=== PATIENT | male | born 1975 | race Caucasian/White ===

== ENCOUNTER 2019-12-04 01:10 | Emergency (ER) | payer SELFPAY ==
[2019-12-04] MEDS ORDERED: Ketorolac 30 MG/ML SDV IM ONE (01:49)
[2019-12-04] MEDS ORDERED: Acetaminophen 325 MG Tab PO ONE (01:49)
--- NOTE | 2019-12-04 02:14 | EDM.PDOC ---
ED HPI GENERAL MEDICAL PROBLEM - General Chief Complaint: Lower Extremity Injury/Pain Stated Complaint: FALL, KNEE PAIN Time Seen by Provider: 12/04/19 01:13 Source of Information: Reports: Patient History Limitations: Reports: No Limitations - History of Present Illness INITIAL COMMENTS - FREE TEXT/NARRATIVE: 44M presents w/ L knee pain following a fall. Patient is intoxicated. Fall occured 2 days ago. Fell hitting L knee. Notes pain/swelling to L knee. Is ambulatory. Denies CHI or LOC. L knee Pain Score (Numeric/FACES): 8 - Related Data Allergies Allergy/AdvReac Type Severity Reaction Status Date / Time No Known Allergies Allergy Verified 12/04/19 01:33 Home Meds: Home Meds Clopidogrel [Plavix] 1 tab PO DAILY 12/04/19 [History] Isosorbide Mononitrate [Imdur] 30 mg PO DAILY 12/04/19 [History] Non-Formulary Medication [NF Drug] 1 tab PO DAILY 12/04/19 [History] amLODIPine Besylate [Amlodipine Besylate] 10 mg PO DAILY 12/04/19 [History] atorvaSTATin [Lipitor] 20 mg PO DAILY 12/04/19 [History] lisinopriL [Lisinopril] 20 mg PO DAILY 12/04/19 [History] Past Medical History Cardiovascular History: Reports: CAD, High Cholesterol, Hypertension, [place] Other Cardiovascular History: x4 heart caths, 4 [place] Respiratory History: Reports: Asthma, Bronchitis, Recurrent, COPD Other Gastrointestinal History: 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 ED EXAM, GENERAL - Physical Exam Exam: See Below Exam Limited By: Altered Mental Status General Appearance: Alert, WD/WN, No Apparent Distress Head: Atraumatic, Normocephalic Neck: Normal Inspection, Non-Tender Respiratory/Chest: No Respiratory Distress Cardiovascular: Normal Peripheral Pulses Extremities: Other (TTP and mild swelling of L knee; TTP b/l joint lines, no patella TTP, limited active ROM 2/2 pain, small overlying abrasion) Neurological: Alert, Oriented Psychiatric: Normal Affect, Normal Mood Skin Exam: Warm, Dry Course - Vital Signs Last Recorded V/S: Last Vital Signs Temp 96.3 F L 12/04/19 01:30 Pulse 100 12/04/19 01:30 Resp 20 12/04/19 01:30 BP 115/52 L 12/04/19 01:30 Pulse Ox 96 12/04/19 01:30 - Orders/Labs/Meds Orders: Active Orders 24 hr Category Date Time Status Russell Bandage [RC] ONETIME Care 12/04/19 02:22 Ordered Meds: Medications Discontinued Medications Generic Name Dose Route Start Last Admin Trade Name Sherif PRN Reason Stop Dose Admin Acetaminophen 650 mg 12/04/19 01:49 12/04/19 02:15 Tylenol PO 12/04/19 01:50 650 mg NOW ONE Administration Ketorolac Tromethamine 30 mg 12/04/19 01:49 12/04/19 02:16 Toradol IM 12/04/19 01:50 30 mg ONETIME ONE Administration - Re-Assessments/Exams Free Text/Narrative Re-Assessment/Exam: 12/04/19 02:25 XR remarkable for small effusion; will RUSSELL wrap and refer to ortho if no improvement Departure - Departure Time of Disposition: 02:24 Disposition: Home, Self-Care 01 Preliminary Cause of *Q: Cardiac Arrest Condition: Good Clinical Impression: Sprain of knee, Knee effusion, left - Discharge Information Instructions: Knee Effusion, [id number] Referrals: PCP,Not In Area [Primary Care Provider] - Ortho, clinic [Other] Forms: ED Department Discharge Additional Instructions: The following information is given to patients seen in the emergency department who are being discharged to home. This information is to outline your options for follow-up care. We provide all patients seen in our emergency department with a follow-up referral. The need for follow-up, as well as the timing and circumstances, are variable depending upon the specifics of your emergency department visit. If you don't have a primary care physician on staff, we will provide you with a referral. We always advise you to contact your personal physician following an emergency department visit to inform them of the circumstance of the visit and for follow-up with them and/or the need for any referrals to a consulting specialist. The emergency department will also refer you to a specialist when appropriate. This referral assures that you have the opportunity for follow-up care with a specialist. All of these measure are taken in an effort to provide you with optimal care, which includes your follow-up. Under all circumstances we always encourage you to contact your private physician who remains a resource for coordinating your care. When calling for follow-up care, please make the office aware that this follow-up is from your recent emergency room visit. If for any reason you are refused follow-up, please contact the [facility] Emergency Department at and asked to speak to the emergency department charge nurse. Sepsis Event Note (ED) - Evaluation Sepsis Screening Result: No Definite Risk - Focused Exam Vital Signs: Vital Signs Temp Pulse Resp BP Pulse Ox 12/04/19 01:30 96.3 F L 100 20 115/52 L 96 - My Orders Last 24 Hours: My Active Orders 12/04/19 02:22 Russell Bandage [RC] ONETIME - Assessment/Plan Last 24 Hours: My Active Orders 12/04/19 02:22 Russell Bandage [RC] ONETIME
--- NOTE | 2019-12-04 02:21 | CR ---
INDICATION: Status post knee injury from fall TECHNIQUE: Knee radiograph 4 views left COMPARISON: None FINDINGS: Bone: No acute fractures or aggressive bone lesions are identified. A corticated small ossicle seen near the medial femoral condyle which may be due to a Evy-Stieda lesion associated with previous MCL injury. Joint: The joint spaces of the medial, lateral, and patellofemoral compartments are unremarkable. A small knee effusion is noted. Soft tissue: Unremarkable. No radiopaque foreign bodies are seen. IMPRESSIONS: 1. No acute osseous injuries or abnormalities are noted. 2. A small knee effusion is noted. Dictated by Ron Horn MD @ 12/04/2019 2:20:32 AM Dictated by: Ron Horn MD @ 12/04/2019 02:20:35 (Electronically Signed)
== END 2019-12-04 02:57 | disposition home or self-care (01) ==
LOC: MW.ED 01:10
DX: S83.92XA Sprain of unspecified site of left knee, initial encounter (principal); I25.10 Atherosclerotic heart disease of native coronary artery without angina pectoris; E78.00 Pure hypercholesterolemia, unspecified; I10 Essential (primary) hypertension; I25.2 Old myocardial infarction; J44.9 Chronic obstructive pulmonary disease, unspecified; Z79.02 Long term (current) use of antithrombotics/antiplatelets; Z79.899 Other long term (current) drug therapy; W19.XXXA Unspecified fall, initial encounter
CPT/HCPCS: 73562; 96372; 99283; A9270; J1885